=== PATIENT | female | born 1975 | race Caucasian/White ===

== ENCOUNTER 2021-12-31 21:02 | Outpatient (REF) | payer BC, SELFPAY ==
[2021-12-31 21:14] LABS: ALT 24 U/L (14-59); AST 22 U/L (15-37); Albumin 3.7 g/dL (3.4-5.0); Alkaline Phosphatase 63 U/L (46-116); Anion Gap 10.5 mmol/L (3-11); BUN 14 mg/dL (7-18); Bilirubin, Total 0.3 mg/dL (0.2-1.0); CO2 26.5 mmol/L (21.0-32.0); CREATININE 1.2 mg/dL (0.55-1.02); Calcium 8.8 mg/dL (8.5-10.1); Calculated LDL 158 mg/dL (<100); Chloride 104 mmol/L (98-107); Cholesterol 257 mg/dL (<200); Estimated GFR 55.84 (mL/min/1.73m2); Glucose 87 mg/dL (74-106); HDL Cholesterol 71 mg/dL (40-60); Potassium 4.2 mmol/L (3.5-5.1); Sodium 141 mmol/L (136-145); Total Protein 6.8 g/dL (6.4-8.2); Triglyceride 141 mg/dL (<150)
== END 2021-12-31 21:03 | disposition home or self-care (01) ==
LOC: NCHCN 21:02
PROVIDERS: Visit Provider Nurse Practitioner Family
DX: Z00.00 Encounter for general adult medical examination without abnormal findings (principal); Z13.220 Encounter for screening for lipoid disorders; Z13.1 Encounter for screening for diabetes mellitus
CPT/HCPCS: 80053; 80061

== ENCOUNTER 2022-02-26 21:32 | Outpatient (REF) | payer BC, SELFPAY ==
[2022-02-26 21:48] LABS: ALT 41 U/L (14-59); AST 32 U/L (15-37); Albumin 3.5 g/dL (3.4-5.0); Alkaline Phosphatase 76 U/L (46-116); Anion Gap 7.5 mmol/L (3-11); BUN 13 mg/dL (7-18); Bilirubin, Total 0.3 mg/dL (0.2-1.0); CO2 28.5 mmol/L (21.0-32.0); CREATININE 1.2 mg/dL (0.55-1.02); Calcium 8.5 mg/dL (8.5-10.1); Chloride 104 mmol/L (98-107); Estimated GFR 55.84 (mL/min/1.73m2); Glucose 165 mg/dL (74-106); Potassium 4.1 mmol/L (3.5-5.1); Sodium 140 mmol/L (136-145); Total Protein 6.5 g/dL (6.4-8.2)
== END 2022-02-26 21:33 | disposition home or self-care (01) ==
LOC: NCHCN 21:32
PROVIDERS: Visit Provider Nurse Practitioner Family
DX: R94.4 Abnormal results of kidney function studies (principal)
CPT/HCPCS: 80053

== ENCOUNTER 2022-03-10 16:27 | Outpatient (REF) | payer BC, SELFPAY ==
[2022-03-10 21:09] LABS: Bilirubin Negative (Negative); Blood Trace-intact (Negative); Clarity Sl Cloudy (Clear); Glucose Negative (Negative); Ketones Negative (Negative); Leukocyte Esterase Negative (Negative); Nitrite Negative (Negative); Specific Gravity >= 1.030 (1.005-1.025)
[2022-03-10 21:19] LABS: Epithelial Cells Few HPF (Negative)
[2022-03-10 21:20] LABS: Bacteria Few HPF (Negative); C & S Indicated? Yes; Crystals Negative HPF (Negative); Mucus Trace (Negative)
== END 2022-03-10 16:28 | disposition home or self-care (01) ==
LOC: NCHCN 16:27
PROVIDERS: Visit Provider Nurse Practitioner Family
DX: R30.0 Dysuria (principal)
CPT/HCPCS: 81003; 81015; 87086

== ENCOUNTER 2022-12-03 13:23 | Outpatient (REF) | payer BC, SELFPAY ==
[2022-12-03 14:38] LABS: HGB 15.1 g/dL (11.2-15.7)
[2022-12-03 15:04] LABS: Anion Gap 6.7 mmol/L (3-11); BUN 11 mg/dL (7-18); CO2 29.3 mmol/L (21.0-32.0); CREATININE 1.2 mg/dL (0.55-1.02); Calculated LDL 180 mg/dL (<100); Chloride 109 mmol/L (98-107); Cholesterol 263 mg/dL (<200); Estimated GFR 55.49 (mL/min/1.73m2); Glucose 97 mg/dL (74-106); HDL Cholesterol 56 mg/dL (40-60); Potassium 4.1 mmol/L (3.5-5.1); Sodium 145 mmol/L (136-145); Triglyceride 138 mg/dL (<150)
== END 2022-12-03 13:24 | disposition home or self-care (01) ==
LOC: NCHCN 13:23
PROVIDERS: Visit Provider Nurse Practitioner Family
DX: Z00.00 Encounter for general adult medical examination without abnormal findings (principal); N95.1 Menopausal and female climacteric states; R94.4 Abnormal results of kidney function studies; Z79.899 Other long term (current) drug therapy; Z13.1 Encounter for screening for diabetes mellitus; Z13.220 Encounter for screening for lipoid disorders; R79.89 Other specified abnormal findings of blood chemistry
CPT/HCPCS: 80048; 80061; 83036; 85018

== ENCOUNTER 2024-01-04 15:12 | Outpatient (REF) | payer BC, MEDICAID, SELFPAY ==
[2024-01-04 15:03] LABS: Anion Gap 8.7 mmol/L (3-11); BUN 12 mg/dL (7-18); CO2 28.3 mmol/L (21.0-32.0); CREATININE 1.2 mg/dL (0.55-1.02); Calcium 8.6 mg/dL (8.5-10.1); Calculated LDL 165 mg/dL (<100); Chloride 105 mmol/L (98-107); Cholesterol 252 mg/dL (<200); Estimated GFR 55.15 (mL/min/1.73m2); Glucose 85 mg/dL (74-106); HDL Cholesterol 62 mg/dL (40-60); Potassium 3.9 mmol/L (3.5-5.1); Sodium 142 mmol/L (136-145); Triglyceride 125 mg/dL (<150)
[2024-01-04 15:21] LABS: Hemoglobin A1C 5.2 % (<5.7)
== END 2024-01-04 15:13 | disposition home or self-care (01) ==
LOC: NCHCN 15:12
PROVIDERS: PCP Nurse Practitioner Family; Visit Provider Nurse Practitioner Family
DX: Z00.00 Encounter for general adult medical examination without abnormal findings (principal); R73.9 Hyperglycemia, unspecified; R94.4 Abnormal results of kidney function studies
CPT/HCPCS: 80048; 80061; 83036

== ENCOUNTER 2025-01-23 13:56 | Outpatient (REF) | payer BC, MEDICAID, SELFPAY ==
[2025-01-23 21:17] LABS: Abs Immature Grans 0.02 10^3/uL (0.0-0.06); HCT 38.9 % (36.0-46.0); HGB 12.9 g/dL (11.2-15.7); Immature Grans % 0.3 %; MCH 30.1 pg (27.0-33.0); MCHC 33.2 % (32.0-36.0); MCV 91 fL (80-95); MPV 9.8 fL (8.0-11.0); Platelet Count 265 10^3/uL (130-400); RBC 4.28 10^6/uL (3.93-5.22); RDW 11.7 % (11.7-14.6); RDW-SD 38.8 fL; WBC 5.98 10^3/uL (4.4-10.8)
[2025-01-23 21:36] LABS: Anion Gap 10.4 mmol/L (3-11); BUN 10 mg/dL (7-18); CO2 24.6 mmol/L (21.0-32.0); Calcium 8.0 mg/dL (8.5-10.1); Calculated LDL 142 mg/dL (<100); Chloride 109 mmol/L (98-107); Cholesterol 225 mg/dL (<200); Estimated GFR 60.84 (mL/min/1.73m2); Glucose 105 mg/dL (74-106); HDL Cholesterol 51 mg/dL (>or=50); Potassium 3.6 mmol/L (3.5-5.1); Sodium 144 mmol/L (136-145); Triglyceride 163 mg/dL (<150)
[2025-01-23 21:37] LABS: Hemoglobin A1C 4.9 % (<5.7)
== END 2025-01-23 13:57 | disposition home or self-care (01) ==
LOC: NCHCN 13:56
PROVIDERS: PCP Nurse Practitioner Family; Visit Provider Nurse Practitioner Family
DX: Z13.1 Encounter for screening for diabetes mellitus (principal); N18.9 Chronic kidney disease, unspecified; Z13.220 Encounter for screening for lipoid disorders; C83.30 Diffuse large B-cell lymphoma, unspecified site
CPT/HCPCS: 80048; 80061; 83036; 85025